=== PATIENT | male | born 1995 | race Caucasian/White ===

== ENCOUNTER 2019-11-03 18:25 | Emergency (ER) | payer MEDICAID, OTHER ==
[~2019-11-03] VITALS: Ht 167.6 cm; Wt 74.1 kg
[2019-11-03 18:31] VITALS: BP 150/90
--- NOTE | 2019-11-03 19:56 | NUR ---
PT AWAITING ULTRASOUND, NO DISTRESS.
--- NOTE | 2019-11-03 20:02 | NUR ---
REPORT REC, PT IN [place]
--- NOTE | 2019-11-03 20:08 | NUR ---
PT OFF FLOOR TO ULTRASOUND. REPORT TO PANKAJ WHITTEN
== END 2019-11-03 20:49 | disposition home or self-care (01) ==
LOC: ED 19:57
DX: L02.214 Cutaneous abscess of groin (principal); R21 Rash and other nonspecific skin eruption; F17.200 Nicotine dependence, unspecified, uncomplicated
CPT/HCPCS: 76857; 99284